=== PATIENT | female | born 1970 | race Caucasian/White ===

== ENCOUNTER 2018-04-12 02:00 | Emergency (ER) | payer SELFPAY ==
[~2018-04-12] VITALS: Ht 157.5 cm; Wt 109.3 kg
[2018-04-12 02:03] VITALS: TEMP 36.8; Ht 157.5 cm; Wt 109.3 kg
--- NOTE | 2018-04-12 02:21 | EMERGENCY ROOM VISIT NOTE ---
History Report prepared by Jones: Jose De Jesus Rm Under the Supervision of: Dr. Jacinda Brooks D.O. First contact with patient: 02:07 Chief Complaint: RASH Stated Complaint: RASH History of Present Illness The patient is a 48 year old female who presents to the Emergency Room with complaints of a constant rash beginning today. The patient states that she has been taking amoxicillin for the last three days for bronchitis. She notes that she has taken amoxicillin before and has not had similar episodes. She reports that her rash started on her left arm, then spread to her right arm, chest, abdomen, back, and neck. The patient states that it feels as though her rash is now spreading down to her legs. She notes that her rash feels itchy. She reports that she has a history of eczema and she states that she used her eczema cream with mild relief of her symptoms. She also complains of mild discomfort in her throat and of dry lips. She denies any difficulty swallowing. Source of History: patient Onset: today Position: other (generalized) Quality: other (rash, itchy) Timing: constant Modifying Factors (Relieving): other (eczema cream) Note: The patient also complains of mild discomfort in her throat and of dry lips. She denies any difficulty swallowing. Review of Systems See HPI for pertinent positives & negatives. A total of 10 systems reviewed and were otherwise negative. Past Medical & Surgical Medical Problems: (1) Anemia (2) IBS (irritable bowel syndrome) Surgical Problems: (1) Previous section Family History Diabetes mellitus Heart disease Hypertension Social History Smoking Status: Never Smoker Marital Status: Housing Status: lives with family Occupation Status: employed Current/Historical Medications No Active Prescriptions or Reported Meds Allergies Coded Allergies: No Known Allergies (Unverified , 04/12/18) Physical Exam Vital Signs Date Time Temp Pulse Resp B/P (MAP) Pulse Ox O2 Delivery O2 Flow Rate FiO2 04/12/18 03:14 59 20 121/58 97 04/12/18 02:03 36.8 72 20 166/82 99 Room Air Physical Exam HEENT: Head - normocephalic and atraumatic Pupils are equal, round, and reactive to light. Extraocular eye muscles are intact, and sclera are anicteric. Nose - moist nasal mucosa without discharge. Mouth - moist buccal mucosa. Oropharynx is nonerythematous and there is no tonsillar exudate or edema noted. Neck: Supple; no JVD, nuchal rigidity, cervical lymphadenopathy. Heart: Regular rate and rhythm. There is a normal S1 and S2 with no murmurs, clicks, or gallops appreciated. Lungs: Clear to auscultation bilaterally with no wheezes, rales, or rhonchi. Abdomen: Soft, completely nontender, nondistended, with good bowel sounds. There are no palpable pulsatile masses or hepatosplenomegaly. There is no guarding, rigidity, or rebound noted. Extremities: No evidence of cyanosis, clubbing, or edema. There are easily palpable peripheral pulses. Skin: warm and dry with good turgor. Very fine papular lesions to the arms, chest, and abdomen. Medical Decision & Procedures Medications Administered Medications (Trade) Dose Ordered Sig/Nathen Route Start Time Stop Time Status Last Admin Dose Admin Diphenhydramine HCl (Benadryl Inj) 50 mg NOW STAT IM 04/12/18 02:22 04/12/18 02:24 DC 04/12/18 02:31 50 MG Ranitidine HCl (zANTac TAB) 150 mg NOW STAT PO 04/12/18 02:22 04/12/18 02:24 DC 04/12/18 02:32 150 MG Procedure Medications Administered: Zantac Tab 150mg PO, Benadryl Inj 50mg IM. ED Course 0216: Past medical records reviewed. The patient was evaluated in room B3. A complete history and physical exam was performed. 0222: Zantac Tab 150mg PO, Benadryl Inj 50mg IM 0304: Upon reevaluation, the patient is stable. The itching has improved. She did complain of some numbness and discomfort in the left deltoid where she received the Benadryl injection. I discussed findings and results with her. I told her to stop taking her amoxicillin. She verbalized agreement of the treatment plan. The patient was discharged home. Medical Decision The patient is a 48 year old female who presents to the Emergency Room with complaints of a constant rash beginning today. Differential diagnoses include: drug rash, allergic reaction, and anaphylaxis. This is a 48-year-old female patient has been taking amoxicillin for the past 3 days and developed this diffuse rash. On physical exam, the rash appears to be consistent with a drug rash. Even though the patient has taken amoxicillin multiple times in the past, she is currently having a reaction to it. I have asked her to avoid taking any of the penicillin-based meds. She can continue to use Benadryl and Zantac for the rash. If she develops any difficulty swallowing or breathing or if the rash worsens, she can return here to the emergency department. Medication Reconcilliation Current Medication List: was personally reviewed by me Blood Pressure Screening Patient's blood pressure: Normal blood pressure Blood pressure disposition: Did not require urgent referral Impression Primary Impression: Allergic drug rash Scribe Attestation The scribe's documentation has been prepared under my direction and personally reviewed by me in its entirety. I confirm that the note above accurately reflects all work, treatment, procedures, and medical decision making performed by me. Departure Information Dispostion Home / Self-Care Prescriptions No Active Prescriptions or Reported Meds Forms HOME CARE DOCUMENTATION FORM, IMPORTANT VISIT INFORMATION, WORK / SCHOOL INSTRUCTIONS Patient Instructions My [facility] Additional Instructions Stop the amoxil. Benadryl - 50mg every 6 hours with zantac - 75 mg for itch.
[2018-04-12] MEDS ORDERED: DiphenhydrAMINE HCL 50 MG/ML VIAL IM STA (02:22)
[2018-04-12] MEDS ORDERED: RANITIDINE HCL 150 MG TAB PO STA (02:22)
[2018-04-12 03:14] VITALS: BP 121/58; PULSE 59; O2SAT 97
== END 2018-04-12 03:15 | disposition home or self-care (01) ==
LOC: C.EDB 02:01
DX: L27.0 Generalized skin eruption due to drugs and medicaments taken internally (principal); T36.0X5A Adverse effect of penicillins, initial encounter